=== PATIENT | female | born 1950 | race African-American/Black ===

== ENCOUNTER 2017-09-22 08:00 | Inpatient (IN) | payer BC, OTHER ==
[2017-09-21 17:57] VITALS: BMI 26.9
--- NOTE | 2017-09-29 07:22 | HP ---
Admitting History and Physical - Admission Chief Complaint: left knee osteoarthritis x years History of Present Illness: 67 year old female presents in regard to her left knee. Longstanding history of left knee osteoarthritis. Patient complains of pain, limited ROM, difficulty ambulating and difficulty with ADLs. Patient has failed conservative treatment measures including PO medication, activity modification, injections and exercise program. At this point, patient wishes to proceed with surgical intervention - left total knee replacement (MAKOplasty). History Source: Patient - Past Medical History Cardiovascular: Yes: HTN - Past Surgical History Additional Past Surgical History: See written history & physical. - Smoking History Smoking history: Never smoked - Alcohol/Substance Use Hx Alcohol Use: No Home Medications - Allergies Allergies/Adverse Reactions: Allergies Allergy/AdvReac Type Severity Reaction Status Date / Time morphine AdvReac Itching Verified 09/21/17 17:50 - Home Medications Home Medications: Ambulatory Orders Diclofenac Sodium [Voltaren -] 75 mg PO DAILY 09/21/17 Metoprolol Succinate [Toprol Xl] 100 mg PO DAILY 09/21/17 Review of Systems - Review of Systems Musculoskeletal: reports: Crepitus (left knee), Decreased ROM (left knee), Joint Pain (left knee), Joint Swelling (left knee) Physical Examination Constitutional: Yes: Well Nourished Eyes: Yes: Conjunctiva Clear HENT: Yes: Atraumatic, Normocephalic Neck: Yes: Supple Cardiovascular: Yes: Regular Rate and Rhythm Respiratory: Yes: Regular Gastrointestinal: Yes: Soft ...Rectal Exam: Yes: Deferred Musculoskeletal: Yes: Joint Stiffness (left knee), Joint Swelling (left knee) Assessment/Plan 67 year old female presents in regard to her left knee. Longstanding history of left knee osteoarthritis. Patient complains of pain, limited ROM, difficulty ambulating and difficulty with ADLs. Patient has failed conservative treatment measures including PO medication, activity modification, injections and exercise program. At this point, patient wishes to proceed with surgical intervention - left total knee replacement (MAKOplasty). Pros, cons, risks, benefits and alternatives of a left total knee arthroplasty (MAKOplasty) were discussed with the patient at length. Patient confirms her understanding and consents to proceed with a left total knee arthroplasty (MAKOplasty).
[2017-09-29] MEDS ORDERED: TRANEXAMIC ACID 1000 MG/10 ML VIAL IVPUSH ONE (08:15)
[2017-09-29] MEDS ORDERED: CEFAZOLIN 1 GM/D5W 1 GRAM/50 ML BAG IVPB ONE (08:15)
[2017-09-29] MEDS ORDERED: ROPIVICAINE 0.2%/MORPH PF/KETOROLAC - 51ML DISP.SYRINGE IA ONE ×3 (08:15→14:43)
[2017-09-29] MEDS ORDERED: CELECOXIB 200 MG CAPSULE PO ONE (08:15)
[2017-09-29] MEDS ORDERED: oxyCODONE HCL 10 MG SUSTAINED ACTING TABLET PO ONE (08:15)
[2017-09-29] MEDS ORDERED: GABAPENTIN 300 MG CAPSULE (FP) PO ONE (08:15)
[2017-09-29] MEDS ORDERED: PANTOPRAZOLE 40 MG TABLET (FP) PO ONE (08:16)
[2017-09-29] MEDS ORDERED: BUPIVACAINE LIPOSOME/PF (EXPAREL) 266 MG/20 ML VIAL ONE (10:49)
[2017-09-29] MEDS ORDERED: MIDAZOLAM HCL 2 MG/2 ML SINGLE DOSE VIAL ONE (10:49)
[2017-09-29] MEDS ORDERED: TRANEXAMIC ACID 1000 MG/10 ML VIAL IVPB ONE ×2 (13:36→14:33)
[2017-09-29] MEDS ORDERED: VANCOMYCIN 1,000 MG VIAL (RESTRICTED TO ID ONLY) IVPB ONE ×2 (13:36→14:25)
[2017-09-29] MEDS ORDERED: LACTATED RINGERS SOLUTION 1,000 ML IV SCH ×2 (15:15→19:00)
[2017-09-29] MEDS ORDERED: ONDANSETRON 4 MG/2 ML VIAL IVPUSH PRN ×2 (15:15→18:52)
[2017-09-29] MEDS ORDERED: oxyCODONE HCL 5 MG TABLET PO PRN ×2 (15:15)
[2017-09-29] MEDS ORDERED: KETOROLAC TROMETHAMINE 30 MG/1 ML VIAL ONE (15:59)
[2017-09-29] MEDS ORDERED: traMADol HCL 50 MG TABLET ONE (15:59)
[2017-09-29] MEDS ORDERED: ACETAMINOPHEN INJECTION 100 ML IVPB ONE (16:00)
[2017-09-29] MEDS ORDERED: KETOROLAC TROMETHAMINE 30 MG/1 ML VIAL IVPUSH ONE (16:05)
[2017-09-29] MEDS ORDERED: ACETAMINOPHEN 1000 MG/100 ML VIAL (NON FORMULARY) IVPB ONE (16:05)
[2017-09-29] MEDS ORDERED: traMADol HCL 50 MG TABLET PO ONE (16:15)
[2017-09-29] MEDS ORDERED: MAGNESIUM HYDROX 2400MG/30ML ORAL SUSPENSION 30 ML CUP PO PRN (18:52)
[2017-09-29] MEDS ORDERED: MAG HYDROX/AL HYDROX/SIMETH 30 ML UNIT-DOSE CUP PO PRN (18:52)
[2017-09-29] MEDS: traMADol HCL 50 MG TABLET PO SCH (19:30)
[2017-09-29] MEDS: KETOROLAC TROMETHAMINE 30 MG/1 ML VIAL IVPUSH SCH (19:30)
[2017-09-29] MEDS: oxyCODONE HCL 10 MG SUSTAINED ACTING TABLET PO SCH (21:54)
[2017-09-29] MEDS: GABAPENTIN 300 MG CAPSULE (FP) PO SCH (21:54)
[2017-09-29] MEDS: CELECOXIB 200 MG CAPSULE PO SCH (21:54)
[2017-09-29] MEDS: ASCORBIC ACID 500 MG TABLET (FP) PO SCH (21:55)
[2017-09-29] MEDS: SENNOSIDES/DOCUSATE COMBO (SENNA PLUS) TABLET (UD) PO SCH (21:55)
[2017-09-29] MEDS: ACETAMINOPHEN 325 MG TABLET (FP) PO SCH (22:00)
[2017-09-30] MEDS ORDERED: DEXAMETHASONE SOD PHOSPHATE 10 MG/1 ML VIAL IVPB ONE
[2017-09-30] MEDS: traMADol HCL 50 MG TABLET PO SCH ×5 (00:45→23:55)
[2017-09-30] MEDS: KETOROLAC TROMETHAMINE 30 MG/1 ML VIAL IVPUSH SCH ×3 (01:23→14:21)
[2017-09-30] MEDS: CEFAZOLIN 1 GM/D5W 1 GM/50 ML BAG IVPB SCH ×2 (01:23→09:40)
[2017-09-30] MEDS: ACETAMINOPHEN 325 MG TABLET (FP) PO SCH ×5 (03:52→21:01)
[2017-09-30 08:01] LABS: HEMATOCRIT 37.2 % (32.4-45.2); HEMOGLOBIN 12.2 GM/dl (10.7-15.3); MCH 29.9 pg (25.7-33.7); MCHC 32.8 g/dl (32.0-36.0); MEAN CELL VOLUME 91.3 fl (80-96); MEAN PLT VOLUME 10.5 fl (7.5-11.1); PLATELET COUNT 188 K/MM3 (134-434); RBC 4.07 M/mm3 (3.60-5.2); RDW 12.5 % (11.6-15.6); WHITE BLOOD COUNT 6.8 K/mm3 (4.0-10.8)
[2017-09-30 08:16] LABS: ANION GAP 5 (8-16); BLOOD UREA NITROGEN 12 mg/dl (7-18); CALCIUM 8.6 mg/dl (8.4-10.2); CHLORIDE 104 mmol/L (98-107); CO2 25 mmol/L (22-28); CREATININE 0.9 mg/dl (0.6-1.3); GLUCOSE,RANDOM 189 mg/dl (74-106); POTASSIUM 4.2 mmol/L (3.5-5.1); SODIUM 134 mmol/L (136-145)
--- NOTE | 2017-09-30 09:09 | PN ---
Progress Note (short form) - Note Progress Note: ANESTHESIOLOGY POST-OP CHECK 67F s/p left TKR under spinal anesthesia and peripheral nerve blocks, POD #1. No acute complaints. Pain 0/10 and tolerable. Denies N/V, headache. OOB to chair. Denies weakness. Says left leg still numb. Vital Signs Temperature 98.8 F 09/30/17 06:00 Pulse Rate 65 09/30/17 06:00 Respiratory Rate 18 09/30/17 06:00 Blood Pressure 112/49 09/30/17 06:00 O2 Sat by Pulse Oximetry (%) 95 09/30/17 06:00 Active Medications Acetaminophen (Tylenol -) 650 mg PO Q6H [facility] Stop: 10/02/17 15:59 Last Admin: 09/30/17 03:52 Dose: 650 mg Al Hydroxide/Mg Hydroxide (Mylanta Oral Suspension -) 30 ml PO Q4H PRN PRN Reason: DYSPEPSIA Ascorbic Acid (Vitamin C -) 500 mg PO BID [facility] Last Admin: 09/29/17 21:55 Dose: 500 mg Aspirin (Asa -) 325 mg PO DAILY@0800 [facility] Celecoxib (Celebrex -) 200 mg PO BID [facility] Last Admin: 09/29/17 21:54 Dose: 200 mg Gabapentin (Neurontin -) 300 mg PO BID [facility] Stop: 10/02/17 21:59 Last Admin: 09/29/17 21:54 Dose: 300 mg Lactated Ringer's (Lactated Ringers Solution) 1,000 mls @ 125 mls/hr IV ASDIR [facility] Cefazolin Sodium (Ancef 1 Gm Premixed Ivpb -) 1 gm in 50 mls @ 100 mls/hr IVPB Q8H-IV [facility] Stop: 09/30/17 10:29 Last Admin: 09/30/17 01:23 Dose: 100 mls/hr Ketorolac Tromethamine (Toradol Injection -) 30 mg IVPUSH Q6H [facility] Stop: 09/30/17 13:31 Last Admin: 09/30/17 01:23 Dose: 30 mg Magnesium Hydroxide (Milk Of Magnesia -) 30 ml PO PRN PRN PRN Reason: CONSTIPATION Metoprolol Succinate (Toprol Xl -) 100 mg PO DAILY [facility] Multivitamins/Minerals/Vitamin C (Tab-A-Vit -) 1 tab PO DAILY [facility] Ondansetron HCl (Zofran Injection) 4 mg IVPUSH Q6H PRN PRN Reason: NAUSEA Oxycodone HCl (Roxicodone -) 5 mg PO Q3H PRN PRN Reason: PAIN LEVEL 1-5 Oxycodone HCl (Roxicodone -) 10 mg PO Q3H PRN PRN Reason: PAIN LEVEL 6-10 Oxycodone HCl (Oxycontin -) 10 mg PO BID [facility] Stop: 10/02/17 15:16 Last Admin: 09/29/17 21:54 Dose: 10 mg Pantoprazole Sodium (Protonix -) 40 mg PO DAILY [facility] Senna/Docusate Sodium (Pericolace -) 1 tablet PO BID [facility] Last Admin: 09/29/17 21:55 Dose: 1 tablet Tramadol HCl (Ultram -) 50 mg PO Q6HPO [facility] Last Admin: 09/30/17 05:28 Dose: 50 mg Gen: awake, alert. Ext: No apparent lower ext motor deficit. Decreased sensation of medial left thigh and leg. Thick bandages dry and intact. No apparent anesthesia complications. Pain well controlled. Continue management as per primary team. If numbness does not resolve 24 hours post-op please call for reassessment.
[2017-09-30] MEDS: CELECOXIB 200 MG CAPSULE PO SCH ×2 (09:36→21:01)
[2017-09-30] MEDS: SENNOSIDES/DOCUSATE COMBO (SENNA PLUS) TABLET (UD) PO SCH ×2 (09:37→21:00)
[2017-09-30] MEDS: ASPIRIN 325 MG TABLET PO SCH (09:37)
[2017-09-30] MEDS: PANTOPRAZOLE 40 MG TABLET (FP) PO SCH (09:37)
[2017-09-30] MEDS: GABAPENTIN 300 MG CAPSULE (FP) PO SCH ×2 (09:38→21:01)
[2017-09-30] MEDS: oxyCODONE HCL 10 MG SUSTAINED ACTING TABLET PO SCH ×2 (09:38→21:01)
[2017-09-30] MEDS: MULTIVITAMINS (DAILY MVI) TABLET (FP) PO SCH (09:40)
[2017-09-30] MEDS: ASCORBIC ACID 500 MG TABLET (FP) PO SCH ×2 (09:40→21:01)
[2017-10-01] MEDS: ACETAMINOPHEN 325 MG TABLET (FP) PO SCH ×2 (04:34→09:59)
[2017-10-01] MEDS: traMADol HCL 50 MG TABLET PO SCH (06:06)
[2017-10-01 06:41] VITALS: BP 102/50; PULSE 75; TEMP 98
[2017-10-01 08:47] LABS: HEMATOCRIT 35.5 % (32.4-45.2); HEMOGLOBIN 11.5 GM/dl (10.7-15.3); MCH 29.8 pg (25.7-33.7); MCHC 32.5 g/dl (32.0-36.0); MEAN CELL VOLUME 91.7 fl (80-96); MEAN PLT VOLUME 10.9 fl (7.5-11.1); PLATELET COUNT 207 K/MM3 (134-434); RBC 3.87 M/mm3 (3.60-5.2); RDW 12.9 % (11.6-15.6); WHITE BLOOD COUNT 10.9 K/mm3 (4.0-10.8)
[2017-10-01] MEDS: ASCORBIC ACID 500 MG TABLET (FP) PO SCH (09:57)
[2017-10-01] MEDS: ASPIRIN 325 MG TABLET PO SCH (09:57)
[2017-10-01] MEDS: CELECOXIB 200 MG CAPSULE PO SCH (09:58)
[2017-10-01] MEDS: SENNOSIDES/DOCUSATE COMBO (SENNA PLUS) TABLET (UD) PO SCH (09:58)
[2017-10-01] MEDS: MULTIVITAMINS (DAILY MVI) TABLET (FP) PO SCH (09:58)
[2017-10-01] MEDS: PANTOPRAZOLE 40 MG TABLET (FP) PO SCH (09:59)
[2017-10-01] MEDS: GABAPENTIN 300 MG CAPSULE (FP) PO SCH (09:59)
[2017-10-01] MEDS: oxyCODONE HCL 10 MG SUSTAINED ACTING TABLET PO SCH (09:59)
--- NOTE | 2017-10-01 10:51 | PN ---
Progress Note (short form) - Note Progress Note: Pt seen and examined yesterday afternoon and again this morning. AVSS Selected Entries 09/30/17 09/30/17 10/01/17 22:00 22:19 06:00 Temperature 97.8 F 98.0 F Pulse Rate 60 75 Respiratory 18 18 Rate Blood Pressure 109/43 102/50 O2 Sat by Pulse 100 Oximetry (%) Oxygen Delivery Room Air Method Laboratory Tests 09/30/17 09/30/17 10/01/17 07:30 07:30 07:42 WBC 6.8 10.9 H Hgb 12.2 11.5 Hct 37.2 35.5 Plt Count 188 207 Sodium 134 L Potassium 4.2 Chloride 104 Carbon Dioxide 25 Anion Gap 5 L BUN 12 Creatinine 0.9 Creat Clearance w eGFR > 60 Random Glucose 189 H Calcium 8.6 Gen: NAD RLE: c/d/i, NVID A/P s/p Right knee MAKOPLASTY TKA PT/OOB D/C home today
--- NOTE | 2017-10-01 11:02 | DS ---
Physical Examination Vital Signs: Vital Signs Temperature 98.0 F 10/01/17 06:00 Pulse Rate 75 10/01/17 06:00 Respiratory Rate 18 10/01/17 06:00 Blood Pressure 102/50 10/01/17 06:00 O2 Sat by Pulse Oximetry (%) 100 09/30/17 22:19 Labs: CBC, BMP 10/01/17 07:42 09/30/17 07:30 Discharge Summary Reason For Visit: LEFT KNEE OSTEOARTHRITIS Current Active Problems Osteoarthritis of left knee (Acute) Procedures: Principal: left total knee replacement Hospital Course: Admitted for elective surgery. Procedure performed without complications. Pt received postoperative antibiotic prophylaxis and DVT ppx. Ambulated with physical therapy. Stable for discharge home with outpatient followup. Condition: Stable - Instructions Diet, Activity, Other Instructions: Dr. Raphael - Knee Replacement Instructions Keep the Aquacel dressing on until removed by Dr. Raphael in 10-14 days - it is antibacterial and waterproof and you can shower with it on. Call the office for a follow-up appointment with Dr. Raphael in 10-14 days. Take one Aspirin 325mg daily for 6 weeks to prevent blood clots in your legs. Take one Pantoprazole 40mg daily for 6 weeks to protect against heartburn and ulcers. Take Cephalexin (antibiotic) 3x/day for 10 days to help prevent skin infection. Take Celebrex 200mg twice daily for 30 days to reduce swelling and inflammation. Take a multivitamin, stool softener, and extra Vitamin C supplement daily. For pain: *Mild pain (1-3/10): Take 1 Tramadol tablet every 4 hours as needed. Moderate pain (4-6/10): Take 1 Tramadol tablet and 1 Percocet tablet every 4 hours as needed. Severe pain (7-10/10): Take 1 Tramadol tablet and 2 Percocet tablets every 4 hours as needed. Activity: You can put as much weight on the operative leg as you want. Right after you get home, there will be a physical therapist coming to your house to help you walk around and bend/straighten your knee. After your follow-up appointment, you will be sent for more intensive outpatient physical therapy which will include machines and equipment that the home therapist cannot bring to your house. Always use a walker or cane for balance and to prevent falls. Expect to see swelling/bruising from the operative site all the way down to your toes. Wear the compression stocking on the operative side during the day to minimize how much swelling there is in your foot/ankle. Don't wear the stocking at night. You don't have to wear a stocking on the other side. Disposition: [facility]/HOME HEALTH CARE - Home Medications Comprehensive Discharge Medication List: Ambulatory Orders Metoprolol Succinate [Toprol Xl] 100 mg PO DAILY 09/21/17 Ascorbic Acid [Vitamin C -] 500 mg PO BID tablet 10/01/17 Aspirin [ASA -] 325 mg PO DAILY@0800 tablet 10/01/17 Celecoxib [CeleBREX -] 200 mg PO BID #60 capsule 10/01/17 Cephalexin Monohydrate [Keflex -] 500 mg PO TID #30 capsule 10/01/17 Multivitamins [Multivit ([facility] Formulary)] 1 tab PO DAILY tab 10/01/17 Oxycodone HCl/Acetaminophen [Percocet 5-325 mg Tablet] 1 - 2 tab PO Q4H PRN #60 tablet MDD 10 10/01/17 Pantoprazole Sodium [Protonix -] 40 mg PO DAILY #40 tablet.ec 10/01/17 Sennosides/Docusate Sodium [Pericolace -] 1 tablet PO BID tablet 10/01/17 traMADol HCL [Ultram -] 50 mg PO Q4H PRN #42 tablet MDD 6 10/01/17
--- NOTE | 2017-10-03 12:45 | PATH ---
Surgical Pathology Report Patient Name: CARLOS MITCHELL Med. Rec. #: [id number] /Age/Gender: 1950 (Age: 67) / F Account: [id number] Location: [facility] Taken: 09/29/2017 Received: 09/30/2017 Reported: 10/03/2017 Physicians: Pietro Raphael M.D. Specimen(s) Received LEFT KNEE BONE Clinical History Left knee osteoarthritis Final Diagnosis BONE, KNEE, LEFT, TOTAL KNEE REPLACEMENT MAKOPLASTY: BONE WITH DEGENERATIVE JOINT DISEASE. Electronically Signed Angella Lockhart M.D. Gross Description Received in formalin labeled "left knee bone," is an 11.5 x 11.0 x 2.0 cm aggregate of multiple portions of bone and soft tissue. The tibial plateau measures 7.0 x 5.1 x 1.2 cm. There are multiple areas of eburnation present, measuring up to 2.7 cm in greatest dimension. The remaining articular surfaces are awan-brown and focally granular. The underlying trabecular bone is yellow and hard. Overhead [employer] sections are submitted in one cassette, following decalcification. /09/30/2017 saudi09/30/2017
== END 2017-10-01 13:00 | disposition home health service (06) | DRG 470 ==
LOC: FM/S 09-29 09:14
PROVIDERS: ADMIT Student in an Organized Health Care Education/Training Program; ATTEND Student in an Organized Health Care Education/Training Program
PROC: 0SRD0J9 Replacement of Left Knee Joint with Synthetic Substitute, Cemented, Open Approach (ICD-10-PCS; principal; 2017-09-30)
PROC: 8E0Y0CZ Robotic Assisted Procedure of Lower Extremity, Open Approach (ICD-10-PCS; 2017-09-30)
DX: M17.12 Unilateral primary osteoarthritis, left knee (principal); I10 Essential (primary) hypertension
CPT/HCPCS: 36415; 73560-TC-LT-FY; 80048; 85027; 88305-TC; 88311-TC; 94760; 97116-GP; 97162-GP; J0131; J1100

== ENCOUNTER 2020-03-14 05:03 | Day surgery (SDC) | payer OTHER ==
[2020-03-12 13:47] VITALS: BMI 29.9
[2020-03-14 10:52] VITALS: TEMP 97.5
[2020-03-14 10:56] VITALS: BP 117/68; PULSE 57
== END 2020-03-14 11:25 | disposition home or self-care (01) ==
LOC: JASU-ENDO 05:03
PROVIDERS: ATTEND Internal Medicine Gastroenterology
PROC: 0DBP8ZX Excision of Rectum, Via Natural or Artificial Opening Endoscopic, Diagnostic (ICD-10-PCS; 2020-03-14)
PROC: 0DBL8ZX Excision of Transverse Colon, Via Natural or Artificial Opening Endoscopic, Diagnostic (ICD-10-PCS; principal; 2020-03-14 09:00)
DX: Z12.11 Encounter for screening for malignant neoplasm of colon (principal); K62.1 Rectal polyp; D12.3 Benign neoplasm of transverse colon
CPT/HCPCS: 88305-TC

== ENCOUNTER 2021-05-29 11:33 | Day surgery (SDC) | payer OTHER ==
[2021-05-27 10:57] VITALS: BMI 28.3
[2021-05-29] MEDS ORDERED: ceFAZolin SODIUM 1 GM VIAL ONE ×3 (12:46→23:51)
[2021-05-29] MEDS ORDERED: LIDOCAINE HCL/PF 2% SDV 5ML VIAL ONE (12:46)
[2021-05-29] MEDS ORDERED: SODIUM CHLORIDE 0.9% P/F 10 ML VIAL IJ ONE ×2 (12:46→13:26)
[2021-05-29] MEDS ORDERED: MIDAZOLAM HCL 2 MG/2 ML SINGLE DOSE VIAL ONE ×4 (12:46→16:04)
[2021-05-29] MEDS ORDERED: PROPOFOL 20 ML ONE (12:46)
[2021-05-29] MEDS ORDERED: TRANEXAMIC ACID 1000 MG/10 ML VIAL ONE (12:46)
[2021-05-29] MEDS ORDERED: ONDANSETRON 4 MG/2 ML VIAL ONE (12:47)
[2021-05-29] MEDS ORDERED: DEXAMETHASONE SOD PHOSPHATE 4 MG/1 ML VIAL ONE (12:47)
[2021-05-29] MEDS ORDERED: BUPIVACAINE LIPOSOME/PF (EXPAREL) 266 MG/20 ML VIAL ONE (13:25)
[2021-05-29] MEDS ORDERED: BUPIVACAINE HCL 50 ML ONE ×2 (13:25→14:00)
[2021-05-29] MEDS ORDERED: VANCOMYCIN 1,000 MG VIAL (RESTRICTED TO ID ONLY) ONE (13:29)
[2021-05-29] MEDS ORDERED: BUPIVACAINE HCL/PF 0.25% (2.5MG/ML) 10 ML VIAL ONE (13:33)
[2021-05-29] MEDS ORDERED: KETOROLAC TROMETHAMINE 60 MG/2 ML VIAL ONE (13:33)
[2021-05-29] MEDS ORDERED: TRANEXAMIC ACID 1000 MG/10 ML VIAL IVPUSH ONE (13:54)
[2021-05-29] MEDS ORDERED: CEFAZOLIN 1 GM/D5W 1 GM/50 ML BAG IVPB ONE (13:54)
[2021-05-29] MEDS ORDERED: MAG HYDROX/AL HYDROX/SIMETH 30 ML UNIT-DOSE CUP PO PRN (16:44)
[2021-05-29] MEDS ORDERED: ONDANSETRON 4 MG/2 ML VIAL IVPUSH PRN ×2 (16:44→17:54)
[2021-05-29] MEDS ORDERED: LACTATED RINGERS SOLUTION 1,000 ML IV SCH (16:45)
[2021-05-29] MEDS ORDERED: ACETAMINOPHEN 1000 MG/100 ML BAG IVPB ONE (17:54)
[2021-05-29] MEDS ORDERED: oxyCODONE HCL 5 MG TABLET PO PRN (17:54)
[2021-05-29] MEDS ORDERED: ACETAMINOPHEN INJECTION 100 ML IVPB ONE (18:05)
[2021-05-29] MEDS ORDERED: DEXTROSE 5%-WATER 100 ML IVPB ONE ×2 (21:02→23:52)
[2021-05-29] MEDS: oxyCODONE HCL 5 MG TABLET PO PRN (21:21)
[2021-05-29] MEDS: oxyCODONE HCL 10 MG SUSTAINED ACTING TABLET PO SCH (21:22)
[2021-05-29] MEDS: GABAPENTIN 300 MG CAPSULE PO SCH (21:22)
[2021-05-29] MEDS: CEFAZOLIN 2 GM in DEXTROSE 5%-WATER 100 ML IVPB SCH (21:24)
[2021-05-29] MEDS: SENNOSIDES/DOCUSATE COMBO (SENNA PLUS) TABLET (UD) PO SCH (21:24)
[2021-05-29] MEDS: BUDESONIDE/FORMETEROL FUMARATE 80/4.5 mcg INHALER IH SCH (21:50)
[2021-05-29] MEDS: ACETAMINOPHEN 500 MG TABLET (FP) PO SCH (23:50)
[2021-05-30] MEDS: CEFAZOLIN 2 GM in DEXTROSE 5%-WATER 100 ML IVPB SCH ×3 (02:06→17:28)
[2021-05-30] MEDS: oxyCODONE HCL 5 MG TABLET PO PRN (06:57)
[2021-05-30] MEDS: ACETAMINOPHEN 500 MG TABLET (FP) PO SCH ×3 (06:58→17:29)
[2021-05-30] MEDS ORDERED: ALBUTEROL SO4 HFA INHALER IH PRN (08:11)
[2021-05-30] MEDS: GABAPENTIN 300 MG CAPSULE PO SCH ×2 (09:46→21:25)
[2021-05-30] MEDS: oxyCODONE HCL 10 MG SUSTAINED ACTING TABLET PO SCH ×2 (09:46→21:25)
[2021-05-30] MEDS: ASPIRIN 325 MG TABLET PO SCH ×2 (09:46→21:25)
[2021-05-30] MEDS: MULTIVITAMINS (DAILY MVI) TABLET (FP) PO SCH (09:48)
[2021-05-30] MEDS: SENNOSIDES/DOCUSATE COMBO (SENNA PLUS) TABLET (UD) PO SCH ×2 (09:48→21:25)
[2021-05-30] MEDS: PANTOPRAZOLE 40 MG TABLET PO SCH (09:48)
[2021-05-30 10:00] LABS: HEMATOCRIT 36.4 % (32.4-45.2); MCH 29.7 pg (25.7-33.7); MEAN PLT VOLUME 10.3 fl (7.5-11.1); PLATELET COUNT 226 10^3/uL (134-434); RBC 4.04 M/mm3 (3.60-5.2); RDW 13.1 % (11.6-15.6); WHITE BLOOD COUNT 12.8 K/mm3 (4.0-10.0)
[2021-05-30] MEDS ORDERED: [UNRECOGNIZED DRUG - OTHER] PO SCH (10:00)
[2021-05-30] MEDS ORDERED: MULTIVITAMIN WITH IRON PO SCH (10:00)
[2021-05-30] MEDS: BUDESONIDE/FORMETEROL FUMARATE 80/4.5 mcg INHALER IH SCH ×2 (10:28→21:28)
[2021-05-30] MEDS ORDERED: ceFAZolin SODIUM 1 GM VIAL ONE ×3 (17:16→17:21)
[2021-05-30] MEDS ORDERED: DEXTROSE 5%-WATER 100 ML IVPB ONE (17:17)
[2021-05-31] MEDS: ACETAMINOPHEN 500 MG TABLET (FP) PO SCH ×4 (00:12→18:20)
[2021-05-31] MEDS: oxyCODONE HCL 5 MG TABLET PO PRN ×2 (01:40→06:39)
[2021-05-31 09:06] LABS: BASO % 0.6 % (0-2.0); EOS % 2.4 % (0-4.5); HEMATOCRIT 32.6 % (32.4-45.2); HEMOGLOBIN 11.1 GM/dL (10.7-15.3); LYMPH % 27.6 % (8-40); MCH 30.5 pg (25.7-33.7); MCHC 33.9 g/dl (32.0-36.0); MEAN CELL VOLUME 90.2 fl (80-96); MEAN PLT VOLUME 10.1 fl (7.5-11.1); MONO % 10.7 % (3.8-10.2); NEUT % 58.7 % (42.8-82.8); PLATELET COUNT 176 10^3/uL (134-434); RBC 3.62 M/mm3 (3.60-5.2); RDW 13.3 % (11.6-15.6); WHITE BLOOD COUNT 9.2 K/mm3 (4.0-10.0)
[2021-05-31] MEDS: BUDESONIDE/FORMETEROL FUMARATE 80/4.5 mcg INHALER IH SCH (10:52)
[2021-05-31] MEDS: PANTOPRAZOLE 40 MG TABLET PO SCH (10:53)
[2021-05-31] MEDS: MULTIVITAMINS (DAILY MVI) TABLET (FP) PO SCH (10:53)
[2021-05-31] MEDS: SENNOSIDES/DOCUSATE COMBO (SENNA PLUS) TABLET (UD) PO SCH (10:53)
[2021-05-31] MEDS: ASPIRIN 325 MG TABLET PO SCH (10:53)
[2021-05-31] MEDS: GABAPENTIN 300 MG CAPSULE PO SCH (10:53)
[2021-05-31] MEDS: oxyCODONE HCL 10 MG SUSTAINED ACTING TABLET PO SCH (10:53)
[2021-05-31 13:44] VITALS: BP 119/38; PULSE 70; TEMP 98.7
== END 2021-05-31 18:23 | disposition home or self-care (01) ==
LOC: FASUSAT 11:33 → FM/S 19:16 → FASUSAT 05-31 18:23
PROVIDERS: ATTEND Orthopaedic Surgery Sports Medicine
PROC: 8E0YXBZ Computer Assisted Procedure of Lower Extremity (ICD-10-PCS; 2021-05-29)
PROC: 8E0Y0CZ Robotic Assisted Procedure of Lower Extremity, Open Approach (ICD-10-PCS; 2021-05-29)
PROC: 0SRC0J9 Replacement of Right Knee Joint with Synthetic Substitute, Cemented, Open Approach (ICD-10-PCS; principal; 2021-05-29 14:48)
DX: M17.11 Unilateral primary osteoarthritis, right knee (principal); I10 Essential (primary) hypertension
CPT/HCPCS: 20985; 27447; C1776; S2900; 36415; 73560-TC-RT-FY; 80048; 84132; 85025; 85027; 94760; 97010-GP; 97116-GP; 97162-GP